=== PATIENT | female | born 1935 | race Caucasian/White ===

== ENCOUNTER 2021-06-15 11:17 | Emergency (ER) | payer OTHER ==
--- NOTE | 2021-06-15 12:37 | RAD REPORT ---
EXAM DESCRIPTION: CT - Head Brain Wo Cont - 06/15/2021 12:15 pm CLINICAL HISTORY: fall, head injury Fall, trauma, head injury COMPARISON: No comparisons TECHNIQUE: All CT scans are performed using dose optimization technique as appropriate and may inclu de automated exposure control or mA/KV adjustment according to patient size. FINDINGS: No intracranial hemorrhage, hydrocephalus or extra-axial fluid collection. Mild diffuse br ain atrophy. No areas of brain edema or evidence of midline shift. The paranasal sinuses and mastoids are clear. The calvarium is intact. IMPRESSION: No acute intracranial abnormality.
--- NOTE | 2021-06-15 13:34 | RAD REPORT ---
EXAM DESCRIPTION: RAD - Elbow Right 3 View - 06/15/2021 1:10 pm CLINICAL HISTORY: Right elbow pain status post injury FINDINGS: No fracture or dislocation is seen.
--- NOTE | 2021-06-15 13:41 | EDPHYS ---
Physician Documentation [facility] Name: Flaca Landeros Age: 85 yrs Sex: Female : 1935 Arrival Date: 06/15/2021 Time: 11:20 Bed 8 Private MD: ED Physician Mono Reece HPI: 06/15 13:36 This 85 yrs old Female presents to ER via Ambulatory with complaints of Fall rn Injury. 13:36 Details of fall: The patient fell from an upright position, while walking. Onset: The rn symptoms/episode began/occurred just prior to arrival. Associated injuries: The patient sustained injury to the head, Right elbow. Severity of symptoms: At their worst the symptoms were mild, in the emergency department the symptoms are unchanged. The patient has experienced similar episodes in the past. The patient has not recently seen a physician. Patient reports fell in garage onto concrete, was following a misstep, hit head and right elbow. states was a pretty good fall with good amount of force. No LOC. Takes Coumadin. No vomiting or seizure at onset.. Historical: - Allergies: 11:36 No Known Allergies; ll1 - Home Meds: 12:09 Coumadin Oral [Active]; jl7 - PMHx: 11:36 A fib; Hypertensive disorder; ll1 - PSHx: 11:36 pacemaker; B knees replacements; hysterectomy; ll1 - Immunization history:: Client reports receiving the 2nd dose of the Covid vaccine. - Social history:: Smoking status: Patient denies any tobacco usage or history of. - Immunization history: Last tetanus immunization: unknown. - Family history:: not pertinent. - Hospitalizations: : No recent hospitalization is reported. ROS: 13:36 Constitutional: Negative for fever, chills, and weight loss, Eyes: Negative for injury, rn pain, redness, and discharge, Neck: Negative for injury, pain, and swelling, Cardiovascular: Negative for chest pain, palpitations, and edema, Respiratory: Negative for shortness of breath, cough, wheezing, and pleuritic chest pain, Abdomen/GI: Negative for abdominal pain, nausea, vomiting, diarrhea, and constipation, Back: Negative for injury and pain, MS/Extremity: Positive for contusion and skin tear to right elbow Skin: Positive for skin tear Neuro: Negative for headache, weakness, numbness, tingling, and seizure. 13:36 All other systems are negative. Exam: 13:36 Constitutional: This is a well developed, well nourished patient who is awake, alert, rn and in no acute distress. Head/Face: Normocephalic, atraumatic. Eyes: Periorbital areas with no swelling, redness, or edema. Neck: Trachea midline, no thyromegaly or masses palpated, and no cervical lymphadenopathy. Supple, full range of motion without nuchal rigidity, or vertebral point tenderness. No Meningismus. Chest/axilla: No tenderness of ribs or crepitus palpated Cardiovascular: Regular rate and rhythm. No pulse deficits. Respiratory: No increased work of breathing, no retractions or nasal flaring. Skin: Warm, dry MS/ Extremity: Pulses equal, no cyanosis. Neuro: Awake and alert, GCS 15, oriented to person, place, time, and situation. Cranial nerves II-XII grossly intact. Motor strength 5/5 in all extremities. Sensory grossly intact. Cerebellar exam normal. Normal gait. Vital Signs: 11:37 BP 150 / 88; Pulse 60; Resp 17; Temp 97.4; Pulse Ox 97% ; Weight 83.91 kg; Height 5 ft. ll1 3 in. (160.02 cm); Pain 4/10; 12:40 BP 173 / 69; Pulse 62; Resp 15; Pulse Ox 100% ; jl7 13:20 BP 165 / 77; Pulse 61; Resp 17; Pulse Ox 99% ; jl7 14:13 BP 170 / 65; Pulse 61; Resp 15; Pulse Ox 99% ; jl7 11:37 Body Mass Index 32.77 (83.91 kg, 160.02 cm) ll1 Juan Com[place] Score: 11:57 Eye Response: spontaneous(4). Verbal Response: oriented(5). Motor Response: obeys jl7 commands(6). Total: 15. Trauma Score (Adult): 11:57 Eye Response: spontaneous(1); Verbal Response: oriented(1); Motor Response: obeys jl7 commands(2); Systolic BP: > 89 mm Hg(4); Respiratory Rate: 10 to 29 per min(4); [place] Score: 15; Trauma Score: 12 12:40 Eye Response: spontaneous(1); Verbal Response: oriented(1); Motor Response: obeys jl7 commands(2); Systolic BP: > 89 mm Hg(4); Respiratory Rate: 10 to 29 per min(4); Juan Score: 15; Trauma Score: 12 13:20 Eye Response: spontaneous(1); Verbal Response: oriented(1); Motor Response: obeys jl7 commands(2); Systolic BP: > 89 mm Hg(4); Respiratory Rate: 10 to 29 per min(4); Juan Score: 15; Trauma Score: 12 14:13 Eye Response: spontaneous(1); Verbal Response: oriented(1); Motor Response: obeys jl7 commands(2); Systolic BP: > 89 mm Hg(4); Respiratory Rate: 10 to 29 per min(4); [place] Score: 15; Trauma Score: 12 MDM: 11:41 Patient medically screened. rn 13:36 Differential diagnosis: abrasion, closed head injury, contusion, fracture, sprain, rn strain. Data reviewed: vital signs, nurses notes, radiologic studies, CT scan, plain films, and as a result, I will discharge patient. Test interpretation: by ED physician or midlevel provider: plain radiologic studies, X-ray right elbow negative for acute fracture or dislocation. Counseling: I had a detailed discussion with the patient and/or guardian regarding: the historical points, exam findings, and any diagnostic results supporting the discharge/admit diagnosis, radiology results, the need for outpatient follow up, to return to the emergency department if symptoms worsen or persist or if there are any questions or concerns that arise at home. Response to treatment: the patient's symptoms have mildly improved after treatment, and as a result, I will discharge patient. Special discussion: Based on the patient's history, exam and DX evaluation, there is no indication for emergent intervention or inpatient [place]. It is understood by the patient/guardian that if the SXs persist or worsen they need to return immediately for re-evaluation. I discussed with the patient/guardian in detail that at this point there is no indication for admission to the hospital. It is understood, however, that if the symptoms persist or worsen the patient needs to return immediately for re-evaluation. 06/15 11:47 Order name: CT Head Brain wo Cont; Complete Time: 13:36 rn 06/15 11:47 Order name: XRAY Elbow RIGHT 3 view; Complete Time: 13:36 rn Administered Medications: No medications were administered Disposition Summary: 06/15/21 13:40 Discharge Ordered Location: Home rn Problem: new rn Symptoms: have improved rn Condition: Stable rn Diagnosis - Unspecified superficial injury of other part of head, initial encounter rn - Contusion of right elbow, initial encounter rn Followup: rn - With: Private Physician - When: As needed - Reason: Recheck today's complaints, Re-evaluation by your physician Discharge Instructions: - Discharge Summary Sheet rn - Head Injury, Adult rn - Skin Tear rn - Elbow Contusion rn Forms: - Medication Reconciliation Form rn - Thank You Letter rn - Antibiotic video editing intern - Prescription Opioid Use rn Signatures: Dispatcher [employer] EDMono Beard MD MD rn Leal, Jahala RN RN jl7 Amirah Mensah RN RN ll1
--- NOTE | 2021-06-15 13:41 | ER ---
Nurse's Notes [facility] Name: Flaca Landeros Age: 85 yrs Sex: Female : 1935 Arrival Date: 06/15/2021 Time: 11:20 Bed 8 Private MD: Diagnosis: Unspecified superficial injury of other part of head, initial encounter;Contusion of right elbow, initial encounter Presentation: 06/15 11:37 Chief complaint: Patient states: Trip and fall 1 hour [employer]. R elbow pain and laceration. ll1 R facial injury, no LOC. Takes Coumadin. Coronavirus screen: Vaccine status: Patient reports receiving the 2nd dose of the covid vaccine. Client denies travel out of the [place] in the last 14 days. At this time, the client does not indicate any symptoms associated with coronavirus-19. Ebola Screen: Patient denies travel to an Ebola-affected area in the 21 days before illness onset. Initial Sepsis Screen: Does the patient meet any 2 criteria? No. Patient's initial sepsis screen is negative. Does the patient have a suspected source of infection? Yes: Bone or joint infection. Risk Assessment: Do you want to hurt yourself or someone else? Patient reports no desire to harm self or others. Onset of symptoms was June 15, 2021. 11:37 Method Of Arrival: Ambulatory ll1 11:37 Acuity: SHAHID 3 ll1 11:57 Care prior to arrival: None. Mechanism of Injury: Fall down 1 steps. Trauma event jl7 details: Injury occurred in the [facility], Injury occurred: at home. Injury occurred: June 15, 2021 Injury occurred at: 10:45. Trauma Activation: Physician: ED Physician; Name: Shanell; Notified At: 11:58; Arrived At: 11:58 Physician: General Surgeon; Name: ; Notified At: 11:58; Arrived At: Physician: Radiology; Name: ; Notified At: 11:58; Arrived At: Physician: Respiratory; Name: ; Notified At: 11:58; Arrived At: Physician: Lab; Name: ; Notified At: 11:58; Arrived At: Historical: - Allergies: 11:36 No Known Allergies; ll1 - Home Meds: 12:09 Coumadin Oral [Active]; jl7 - PMHx: 11:36 A fib; Hypertensive disorder; ll1 - PSHx: 11:36 pacemaker; B knees replacements; hysterectomy; ll1 - Immunization history:: Client reports receiving the 2nd dose of the Covid vaccine. - Social history:: Smoking status: Patient denies any tobacco usage or history of. - Immunization history: Last tetanus immunization: unknown. - Family history:: not pertinent. - Hospitalizations: : No recent hospitalization is reported. Screenin:57 Abuse screen: Denies threats or abuse. Denies injuries from another. Tuberculosis jl7 screening: No symptoms or risk factors identified. 12:00 Nutritional screening: No deficits noted. Fall Risk Fall in past 12 months (25 points). jl7 Total [place] Fall Scale indicates Low Risk Score (25-44 pts). Fall prevention measures have been instituted. Side Rails Up X 2 Placed close to Nursing Station Frequent Obs/Assesments occuring Family Present and informed to notify staff if they need to leave bedside As available Patient and Family Educated on Fall Prevention Program and strategies. Primary Survey: 11:57 NO uncontrolled hemorrhage observed. Breathing/Chest: Respiratory pattern: regular, jl7 Respiratory effort: spontaneous, unlabored, Chest inspection: symmetrical rise and fall of the chest. Circulation: Pulses: palpable right radial artery and left radial artery. Skin color: pink, Skin temperature: warm. Disability Alert. Exposure/Environment: There is no evidence of uncontrolled external bleeding. Obvious injury(ies) are noted at this time: skin tear to right elbow A warming method has been applied: A warm blanket has been provided to the patient. 12:40 Reassessment Airway Airway Patent Breathing/Chest Respiratory pattern Regular jl7 Respiratory effort Spontaneous Unlabored Chest inspection Symmetrical Circulation Color [place] Disability Alert. Assessment: 11:57 General: Appears in no apparent distress. uncomfortable, Behavior is calm, cooperative, jl7 appropriate for age. Pain: Complains of pain in right parietal area Pain currently is 4 out of 10 on a pain scale. Neuro: Level of Consciousness is awake, alert, obeys commands, Oriented to person, place, time, situation. EENT:. Cardiovascular: Patient's skin is warm and dry. Chest pain is denied. Respiratory: Airway is patent Respiratory effort is even, unlabored, Respiratory pattern is regular, symmetrical, Denies shortness of breath. Derm: Skin is pink, warm \T\ dry. Injury Description: Skin tear to right elbow. Vital Signs: 11:37 BP 150 / 88; Pulse 60; Resp 17; Temp 97.4; Pulse Ox 97% ; Weight 83.91 kg; Height 5 ft. ll1 3 in. (160.02 cm); Pain 4/10; 12:40 BP 173 / 69; Pulse 62; Resp 15; Pulse Ox 100% ; jl7 13:20 BP 165 / 77; Pulse 61; Resp 17; Pulse Ox 99% ; jl7 14:13 BP 170 / 65; Pulse 61; Resp 15; Pulse Ox 99% ; jl7 11:37 Body Mass Index 32.77 (83.91 kg, 160.02 cm) ll1 Juan [place] Score: 11:57 Eye Response: spontaneous(4). Verbal Response: oriented(5). Motor Response: obeys jl7 commands(6). Total: 15. Trauma Score (Adult): 11:57 Eye Response: spontaneous(1); Verbal Response: oriented(1); Motor Response: obeys jl7 commands(2); Systolic BP: > 89 mm Hg(4); Respiratory Rate: 10 to 29 per min(4); [place] Score: 15; Trauma Score: 12 12:40 Eye Response: spontaneous(1); Verbal Response: oriented(1); Motor Response: obeys jl7 commands(2); Systolic BP: > 89 mm Hg(4); Respiratory Rate: 10 to 29 per min(4); Juan Score: 15; Trauma Score: 12 13:20 Eye Response: spontaneous(1); Verbal Response: oriented(1); Motor Response: obeys jl7 commands(2); Systolic BP: > 89 mm Hg(4); Respiratory Rate: 10 to 29 per min(4); Juan Score: 15; Trauma Score: 12 14:13 Eye Response: spontaneous(1); Verbal Response: oriented(1); Motor Response: obeys jl7 commands(2); Systolic BP: > 89 mm Hg(4); Respiratory Rate: 10 to 29 per min(4); Juan Score: 15; Trauma Score: 12 ED Course: 11:20 Patient arrived in ED. rg4 11:37 Arm band placed on. ll1 11:39 Triage completed. ll1 11:41 Mono eRece MD is Attending Physician. rn 11:55 Zandra Muñoz, WALKER is Primary Nurse. jl7 11:57 Patient has correct armband on for positive identification. Bed in low position. Call jl7 light in reach. Side rails up X 1. 11:57 Patient maintains SpO2 saturation greater than 95% on room air. Thermoregulation: warm jl7 blanket given to patient. 12:15 CT Head Brain wo Cont In Process Unspecified. EDMS 12:40 Wound care: to skin tear located on right elbow was dressed with Neosporin, non stick jl7 gauze, ice pack applied. Patient tolerated well. 13:10 XRAY Elbow RIGHT 3 view In Process Unspecified. EDMS 14:13 No provider procedures requiring assistance completed. Patient did not have IV access jl7 during this emergency room visit. Administered Medications: No medications were administered Intake: 14:14 PO: 0ml; IV: 0ml; Tubes: 0ml (); Total: 0ml. jl7 Output: 14:14 Urine: 0ml; Gastric: 0ml; Stool: 0; EBL: 0ml; Drainage: 0ml; Other: 0; Total: 0ml. jl7 Outcome: 13:40 Discharge ordered by MD. rn 14:13 Discharged to home ambulatory, with family. jl7 14:13 Condition: stable 14:13 Patient's length of stay was not longer than 2 hours. 14:13 Discharge instructions given to patient, family, Instructed on discharge instructions, jl7 follow up and referral plans. wound care, Demonstrated understanding of instructions, follow-up care, wound care. 14:19 Patient left the ED. jl7 Signatures: Dispatcher [employer] EDMS Mono Reece MD MD rn Garcia, Rubi rg4 Zandra Muñoz, WALKER RN jl7 Amirah Mensah RN RN ll1 Corrections: (The following items were deleted from the chart) 14:16 13:00 BP 165 / 77; Pulse 61bpm; Resp 17bpm; Pulse Ox 99%; jl7 jl7
[2021-06-15 14:34] VITALS: TEMP 97.4
[2021-06-15 14:36] VITALS: O2SAT 99
[2021-06-15 14:37] VITALS: BP 170/65
== END 2021-06-15 14:19 | disposition home or self-care (01) ==
LOC: ER 11:17
DX: S00.80XA Unspecified superficial injury of other part of head, initial encounter (principal); S50.01XA Contusion of right elbow, initial encounter; W01.0XXA Fall on same level from slipping, tripping and stumbling without subsequent striking against object, initial encounter; Y93.9 Activity, unspecified; Y92.9 Unspecified place or not applicable
CPT/HCPCS: 70450; 99284

== ENCOUNTER 2023-06-26 15:38 | Emergency (ER) | payer OTHER ==
--- OUTSIDE RECORDS SUMMARY | 2023-06-26 15:48 | XMS REPORT | Continuity of Care Document ---
:1935 Author Organization [facility] t Address [address]. [address] [place] [address] Care Team Providers Name Role Phone KYLE VILLA Primary Care Physician Unavailable Vikram BRASHER Attending Clinician Unavailable Vikram Malone Attending Clinician Payers Payer Name Policy Type Policy Number Effective Date Expiration Date S [facility] [id number] 2023 [facility] 00:00:00 PPO Problems This patient has no known problems. Allergies, Adverse Reactions, Alerts Allergy Allergy Status Severity Reaction(s) Onset Inactive Treating Comm ents Source Name Type Date Date Clinician NO KNOWN Drug Active Univers ALLERGIE Class ity of S [facility] Social History Social Habit Start Date Stop Date Quantity Comments Source Sexual orientation [facility] Gender identity [facility] Medical [place] Sex Assigned At [birth year] Uni versity [facility] 00:00:00 00:00:00 [facility] Branch Smoking Status Start Date Stop Date Source Tobacco smoking consumption Univ [facility] Branch Medications Ordered Filled Start Stop Current Ordering Indication Dosage Frequency Signature Comments Components Source Medication Medication Date Date Medication? Clinician (SIG) Name Name acetaminoph 2022- No 1000mg 1,000 mg, Univers en 04-28 08 Oral, ity of (TYLENOL) 00:30: 00:41 [place]CE, [place] tablet [place] :[place] dose, On Medical 1,000 mg [facility] 04/27/23 at 1930, SULEMAN benzonatate Yes [id number] 200mg Take 1 Univers 200 mg 8-20 capsule by ity of capsule 00:00: mouth 3 [place] 00 (three) Medical times Branch daily as needed for Cough for up to 20 doses. ondansetron 0 Yes [id number] 4mg Take 1 Univers 4 mg 8-20 tablet by ity of disintegrat 00:00: mouth [place] ing tablet 00 every 8 Medica l (eight) Branch hours as needed for Nausea and Vomiting (N/V). molnupiravi 2022- Yes [id number] 800mg Take 4 Univers r 200 mg -27 04- capsules ity of capsule 00:00: 04:59 by mouth [place] 00 :00 every 12 Medical (twelve) Branch hours for 5 days. Vital Signs Vital Name Observation Time Observation Value Comments Source Systolic blood 2023-04-28 01:53:00 156 mm[Hg] Univer sity [facility] [place] Diastolic blood 2023-04-28 01:53:00 81 [facility]Hg[facility] 2023-04-28 01:53:00 85 /min [facility] Body temperature 2023-04-28 01:53:00 37.17 [facility] Respiratory rate 2023-04-28 01:53:00 16 /min [facility] Oxygen saturation in 2023-04-28 01:53:00 98 /min [facility] Arterial blood by [facility] Pulse oximetry Branch Body weight 2023-04-27 23:44:00 72.576 kg [facility] Procedures Procedure Date / Time Performed Performing Clinician Keanu BRITT-19 (ID NOW 2023-04-28 00:04:[address] [facility] RAPID TESTING) [facility] NOTICE OF PRIVACY 2023-04-27 23:41:22 Doctor Unassigned, No Univ [facility] Name [facility] CONSENT/REFUSAL FOR 2023-04-27 23:40:22 [facility] Unassigned, [facility] AND Name Medical Branch TREATMENT Encounters Start End Encounter Admission Attending Care Care Encounter Source Date/Time Date/Time Type Type Clinicians Facility Department ID 2023-04-27 2023-04-27 Emergency X Vikram BRASHER [facility] ERT [id number] [facility] 18:48:00 21:00:00 ity of [facility] 2023-04-27 2023-04-27 Emergency Vikram Brasher [facility] [id number] [facility] 18:48:00 21:00:00 Rebecca ROY [id number] i Noe [id number] [facility] [id number] [facility] 084 Branch Results This patient has no known results.
[2023-06-26] MEDS ORDERED: CYCLOBENZAPRINE 10 MG TAB ONE (16:55)
[2023-06-26] MEDS ORDERED: dexAMETHasone 10 MG/ML VIAL ONE (16:55)
[2023-06-26 18:01] LABS: Absolute Lymphocytes (CBC) 1.6 K/uL (0.7-4.9); Hematocrit 35.7 % (36.0-45.0); Lymphocytes % 11.8 % (15.3-44.8); MCV 88.6 fL (80-100); MPV 8.1 fL (7.6-11.3); Platelets 224 thou/uL (152-406); RBC Red Blood Cell Count 4.02 M/uL (3.86-4.86)
[2023-06-26 18:14] LABS: C-Reactive Protein 86.3 mg/L (<3.00); Potassium 3.6 mEq/L (3.5-5.1)
[2023-06-26] MEDS ORDERED: FENTANYL CITR 100 MCG/2 ML ONE (18:34)
--- NOTE | 2023-06-26 18:35 | RAD REPORT ---
EXAM DESCRIPTION: CT - C Spine Wo Con - 06/26/2023 6:01 pm CLINICAL HISTORY: Pain, status COMPARISON: None. TECHNIQUE: Axial [address] images of the cervical spine were obtained without IV contrast. Sagit joey and coronal reconstruction images generated and reviewed. All CT scans are performed using dose optimization technique as appropriate and may include automated exposure control or mA/KV adjustment according to patient size. FINDINGS: Cervical body height are preserved. Degenerative moderate pannus at the C1-2 articulation. Minimal anterolisthesis of C4 over C5 and retrolisthesis of C6 over C7 secondary to degenerative yanick nges as below. No fracture or acute bony abnormality. Moderate to advanced degenerative changes, with disc height loss most pronounced at C6-7 and to lesse r extent at C5-6. Variable degrees of facet and uncovertebral joint spurring, contributing to variabl e degrees of neural foraminal narrowing, up to severe on the left at C3-4 and moderate bilaterally C6 -7. Mild foraminal narrowing elsewhere. No evidence of bony central canal stenosis. No paraspinal mass or hematoma. IMPRESSION: No acute osseus abnormality. Degenerative changes as above.
--- NOTE | 2023-06-26 18:46 | EDPHYS ---
Physician Documentation [facility] Name: Flaca Landeros Age: 87 yrs Sex: Female : 1935 Arrival Date: 06/26/2023 Time: 15:38 Bed 10 Private MD: ED Physician Grayson Hawkins HPI: 06/26 15:50 This 87 yrs old Female presents to ER via Wheelchair with complaints of Neck Problem - jh7 Pain/Stiffness. 15:50 87-year-old female complains of neck pain since Friday. She reports that the pain jh7 began on the left side of her neck and is now on both sides of her neck. Reports that it started out stiff but now she has intense pain with range of motion. Reports that the pain radiates down both shoulders. History of A-fib and hypertension. She is a patient of Dr. Bee.. Historical: - Allergies: 15:50 No Known Allergies; rs5 - PMHx: 15:50 a fib; Hypertensive disorder; rs5 - PSHx: 15:50 B knees replacements; hysterectomy; pacemaker; rs5 - Immunization history:: Adult Immunizations up to date. - Social history:: Smoking status: Patient denies any tobacco usage or history of. ROS: 15:50 Constitutional: Negative for fever, chills, and weight loss, Eyes: Negative for injury, jh7 pain, redness, and discharge, ENT: Negative for injury, pain, and discharge, Cardiovascular: Negative for chest pain, palpitations, and edema, Respiratory: Negative for shortness of breath, cough, wheezing, and pleuritic chest pain, Abdomen/GI: Negative for abdominal pain, nausea, vomiting, diarrhea, and constipation, Back: Negative for injury and pain, MS/Extremity: Negative for injury and deformity, Skin: Negative for injury, rash, and discoloration, Neuro: Negative for headache, weakness, numbness, tingling, and seizure, 15:50 Neck: Positive for pain with movement, stiffness, tenderness, 15:50 All other systems are negative, Exam: 15:50 Constitutional: This is a well developed, well nourished patient who is awake, alert, jh7 and in no acute distress. Head/Face: Normocephalic, atraumatic. Eyes: Pupils equal round and reactive to light, extra-ocular motions intact. Lids and lashes normal. Conjunctiva and sclera are non-icteric and not injected. Cornea within normal limits. Periorbital areas with no swelling, redness, or edema. Cardiovascular: Regular rate and rhythm with a normal S1 and S2. No gallops, murmurs, or rubs. Normal PMI, no JVD. No pulse deficits. Respiratory: Lungs have equal breath sounds bilaterally, clear to auscultation and percussion. No rales, rhonchi or wheezes noted. No increased work of breathing, no retractions or nasal flaring. Abdomen/GI: Soft, non-tender, with normal bowel sounds. No distension or tympany. No guarding or rebound. No evidence of tenderness throughout. Back: No spinal tenderness. No costovertebral tenderness. Full range of motion. Skin: Warm, dry with normal turgor. Normal color with no rashes, no lesions, and no evidence of cellulitis. MS/ Extremity: Pulses equal, no cyanosis. Neurovascular intact. Full, normal range of motion. 15:50 Neck: External neck: no acute changes, C-spine: no acute changes, Thyroid: appears normal, Trachea: is midline with no obvious abnormalities, ROM/movement: limited range of motion, that is moderate, in any direction, Meningeal signs: are not present, nuchal rigidity, is not appreciated, 15:50 Neuro: Orientation: to person, place, time \T\ situation. Mentation: is normal, Memory: is normal, Cranial nerves: grossly normal, Cerebellar function: normal finger to nose testing, Motor: is normal, Sensation: is normal, Vital Signs: 15:50 BP 137 / 60; Pulse 67; Resp 17; Temp 97.7(TE); Pulse Ox 99% on R/A; rs5 18:34 Pulse 90; Pulse Ox 95% on R/A; ap3 NIH Stroke Scale Scores: 15:50 NIHSS Score: 0 7 MDM: 15:51 Patient medically screened. [facility] 18:00 ED course: Patient still complains of neck pain. She exhibits no neurological symptoms jh7 and no C-spine tenderness. Pain is noted to bilateral neck and appears to be musculoskeletal in nature. She states that the aching pain radiates to her shoulders. Consulted with Dr. Hawkins who recommended fentanyl for pain, discharge, and close follow-up with Dr. Bee.. 18:00 Differential diagnosis: arthritis, bacterial meningitis, Cervical Disc Herniation jh7 Cervical Raiculopathy Cervical Spondylosis cervical strain, Degenerative Disc Disease Osteoarthritis Spinal Cord Compression torticollis. Data reviewed: vital signs, nurses notes, radiologic studies, CT scan. I considered the following discharge prescriptions or medication management in the emergency department Medications were administered in the Emergency Department. See MAR. Historians other than the Patient: Friend: . Care significantly affected by the following chronic conditions: Hypertension. Counseling: I had a detailed discussion with the patient and/or guardian regarding the historical points, exam findings, and any diagnostic results supporting the discharge/admit diagnosis, the need for outpatient follow up, with Dr. Bee, the patient's PCP. Response to treatment: the patient's symptoms have markedly improved after treatment. Special discussion: Advised the patient that if she develops any new concerning symptoms, she may return to the ER for further eval. The patient understood the plan of care.. 06/26 17:23 Order name: CRP; Complete Time: 18:16 [facility] 06/26 17:23 Order name: BMP; Complete Time: 18:16 [facility] 06/26 17:23 Order name: CBC with Diff; Complete Time: 18:07 [facility] 06/26 16:30 Order name: C Spine Wo Con; Complete Time: 18:37 EDMS Administered Medications: 16:48 Drug: Dexamethasone IM 10 mg IM once Route: IM; Site: right gluteus; ap3 18:27 Follow up: Response: No adverse reaction ap3 16:48 Drug: Cyclobenzaprine PO 10 mg PO once Route: PO; ap3 18:27 Follow up: Response: No adverse reaction ap3 18:27 Drug: fentaNYL (PF) IVP 50 mcg IVP once Route: IVP; Site: left antecubital; ap3 19:06 Follow up: Response: No adverse reaction; Pain is decreased ap3 Disposition Summary: 06/26/23 18:46 Discharge Ordered Notes: Location: Home [facility] Problem: new jh7 Symptoms: have improved jh7 Condition: Stable jh7 Diagnosis - Cervicalgia jh7 - Other cervical disc degeneration jh7 - Elevated C-reactive protein (CRP) 7 Followup: [facility] - With: Martínez Bee MD - When: Tomorrow - Reason: Recheck today's complaints Discharge Instructions: - Discharge Summary Sheet [facility] - Musculoskeletal Pain [facility] - Degenerative Disk Disease [facility] Forms: - Medication Reconciliation Form [facility] - Thank You Letter [facility] - Patient Portal Instructions [facility] - Leadership Thank You Letter [facility] Prescriptions: - Zanaflex 4 mg Oral Tablet - take 1 tablet ORAL route every 8 hours As needed; 20 tablet; Refills: 0, [facility] Product Selection Permitted - Medrol (Amaury) 4 mg Oral Tablets, Dose Pack - take 1 tablet ORAL route as directed - follow package instructions; 1 packet; [facility] Refills: 0, Product Selection Permitted NIH Stroke Scale - NIH Stroke Score Date: 06/26/2023 Time: 15:50 Total Score = 0 10. Dysarthria (speech clarity - read or repeat words) - 0(Normal) 11. Extinction and Inattention (visual/tactile/auditory/spatial/personal) - 0(No abnormality) 1a. Level of Consciousness (LOC) - 0(Alert) 1b. Level of Consciousness (LOC) (Month \T\ Age) - 0(Both) 1c. LOC Commands (Open \T\ Closes Eyes/Transmissions Systems Operator) - 0(Both) 2. Best Gaze (Lateral Gaze Paresis) - 0(Normal) 3. Visual Field Loss - 0(No visual loss) 4. Facial Palsy - 0(Normal) 5a. Left Arm: Motor (10-second hold) - 0(No drift) 5b. Right Arm: Motor (10-second hold) - 0(No drift) 6a. Left Leg: Motor (5-second hold - always test supine) - 0(No drift) 6b. Right Leg: Motor (5-second hold - always test supine) - 0(No drift) 7. Limb Ataxia (finger/nose \T\ heel/streeter - test with eyes open) - 0(Absent) 8. Sensory Loss (pinprick arms/legs/face) - 0(Normal) 9. Best Language: Aphasia (description/naming/reading) - 0(No aphasia) Initials: [facility] Signatures: Dispatcher [employer] Kiya Nuñez RN RN ap3 Joelle Lobato, SERVICING REP SERVICING REP 7 Luis A Arvizu RN RN rs5 Corrections: (The following items were deleted from the chart) 16:37 16:31 C Spine Wo Con+[id number].BRZ ordered. EDMS EDMS
--- NOTE | 2023-06-26 18:46 | ER ---
Nurse's Notes [facility] Name: Flaca Landeros Age: 87 yrs Sex: Female : 1935 Arrival Date: 06/26/2023 Time: 15:38 Bed 10 Private MD: Diagnosis: Cervicalgia;Other cervical disc degeneration;Elevated C-reactive protein (CRP) Presentation: 06/26 15:49 Chief complaint: Patient states: "My neck and shoulders hurt and I can't pick my head rs5 up, this isn't normal for me and so I came to get checked out". Coronavirus screen: At this time, the client does not indicate any symptoms associated with coronavirus-19. Ebola Screen: No symptoms or risks identified at this time. Initial Sepsis Screen: Does the patient meet any 2 criteria? No. Patient's initial sepsis screen is negative. Does the patient have a suspected source of infection? No. Patient's initial sepsis screen is negative. Risk Assessment: Do you want to hurt yourself or someone else? Patient reports no desire to harm self or others. Onset of symptoms was June 26, 2023. 15:49 Method Of Arrival: Wheelchair rs5 15:49 Acuity: SHAHID 3 rs5 Historical: - Allergies: 15:50 No Known Allergies; rs5 - PMHx: 15:50 a fib; Hypertensive disorder; rs5 - PSHx: 15:50 B knees replacements; hysterectomy; pacemaker; rs5 - Immunization history:: Adult Immunizations up to date. - Social history:: Smoking status: Patient denies any tobacco usage or history of. Screenin:49 [facility] ED Fall Risk Assessment (Adult) History of falling in the last 3 months, ap3 including since admission No falls in past 3 months (0 pts). Abuse screen: Denies threats or abuse. Nutritional screening: No deficits noted. Tuberculosis screening: No symptoms or risk factors identified. Assessment: 16:48 General: Appears uncomfortable, Behavior is calm, cooperative, appropriate for age. ap3 Pain: Complains of pain in neck Pain began 2-3 days ago. Neuro: Level of Consciousness is awake, alert, obeys commands, Oriented to person, place, time, situation. Cardiovascular: Patient's skin is warm and dry. Respiratory: Airway is patent Respiratory effort is even, unlabored, Respiratory pattern is regular, symmetrical. Vital Signs: 15:50 BP 137 / 60; Pulse 67; Resp 17; Temp 97.7(TE); Pulse Ox 99% on R/A; rs5 18:34 Pulse 90; Pulse Ox 95% on R/A; ap3 NIH Stroke Scale Scores: 15:50 NIHSS Score: 0 [facility] ED Course: 15:44 Patient arrived in ED. mg5 15:50 Triage completed. rs5 15:51 Joelle Lobato FNP is [facility]. jh7 15:51 Grayson Hawkins MD is Attending Physician. jh7 16:05 Luis A Arvizu, WALKER is Primary Nurse. rs5 16:49 Patient has correct armband on for positive identification. ap3 16:50 Arm band placed on right wrist. ap3 17:48 Initial lab(s) drawn, by me, sent to lab. Inserted saline lock: 20 gauge in left ap3 antecubital area, using aseptic technique. Blood collected. 18:00 C Spine Wo Con In Process Unspecified. EDMS 18:45 Martínez Bee MD is Referral Physician. 7 19:06 Provided Education on: discharge instructions. ap3 19:06 No provider procedures requiring assistance completed. IV discontinued, intact, ap3 bleeding controlled, No redness/swelling at site. Pressure dressing applied. Administered Medications: 16:48 Drug: Dexamethasone IM 10 mg IM once Route: IM; Site: right gluteus; ap3 18:27 Follow up: Response: No adverse reaction ap3 16:48 Drug: Cyclobenzaprine PO 10 mg PO once Route: PO; ap3 18:27 Follow up: Response: No adverse reaction ap3 18:27 Drug: fentaNYL (PF) IVP 50 mcg IVP once Route: IVP; Site: left antecubital; ap3 19:06 Follow up: Response: No adverse reaction; Pain is decreased ap3 Medication: 19:06 VIS not applicable for this client. ap3 Outcome: 18:46 Discharge ordered by . jh7 19:06 Discharged to home with family, ap3 19:06 Condition: good 19:06 Discharge instructions given to patient, family, Instructed on discharge instructions, follow up and referral plans. Demonstrated understanding of instructions, follow-up care, medications, Prescriptions given X 2, 19:06 Patient left the ED. ap3 NIH Stroke Scale - NIH Stroke Score Date: 06/26/2023 Time: 15:50 Total Score = 0 10. Dysarthria (speech clarity - read or repeat words) - 0(Normal) 11. Extinction and Inattention (visual/tactile/auditory/spatial/personal) - 0(No abnormality) 1a. Level of Consciousness (LOC) - 0(Alert) 1b. Level of Consciousness (LOC) (Month \\T\\ Age) - 0(Both) 1c. LOC Commands (Open \\T\\ Closes Eyes/Photography Editor) - 0(Both) 2. Best Gaze (Lateral Gaze Paresis) - 0(Normal) 3. Visual Field Loss - 0(No visual loss) 4. Facial Palsy - 0(Normal) 5a. Left Arm: Motor (10-second hold) - 0(No drift) 5b. Right Arm: Motor (10-second hold) - 0(No drift) 6a. Left Leg: Motor (5-second hold - always test supine) - 0(No drift) 6b. Right Leg: Motor (5-second hold - always test supine) - 0(No drift) 7. Limb Ataxia (finger/nose \\T\\ heel/streeter - test with eyes open) - 0(Absent) 8. Sensory Loss (pinprick arms/legs/face) - 0(Normal) 9. Best Language: Aphasia (description/naming/reading) - 0(No aphasia) Initials: 7 Signatures: Dispatcher [employer] Kiya Nuñez RN RN ap3 [facility]7 Luis A Arvizu RN RN [facility] [place] [id number]
[2023-06-26 19:14] VITALS: BP 137/60; TEMP 97.7
[2023-06-26 19:15] VITALS: O2SAT 95
== END 2023-06-26 19:06 | disposition home or self-care (01) ==
LOC: ER 15:38
DX: M50.30 Other cervical disc degeneration, unspecified cervical region (principal); R79.82 Elevated C-reactive protein (CRP); I10 Essential (primary) hypertension; I48.91 Unspecified atrial fibrillation; Z95.0 Presence of cardiac pacemaker
CPT/HCPCS: 85025; 80048; 36415; 86140; 72125; 96372; 96374; 99284; J3010; J1100